=== PATIENT | female | born 1965 | race Caucasian/White ===

== ENCOUNTER → 2021-04-18 | Outpatient (CLI) | payer BC ==
[~2021-04-18] MED LIST: AMLODIPINE BESYL5 MG PO; COLACE 100MG C100 MG PO; IBUPROFEN600 MG PO; LISINOPRIL40 MG PO; NORCO 10-325 T1 EACH PO
== END ==
LOC: MAMO 10:30
DX: Z12.31 Encounter for screening mammogram for malignant neoplasm of breast (principal)
CPT/HCPCS: 77063; 77067